=== PATIENT | female | born 1940 | race Two or more races ===

== ENCOUNTER 2018-09-27 15:10 | Emergency (ER) | payer MEDICARE, MEDICAID ==
[~2018-09-27] VITALS: Ht 165.1 cm; Wt 56.7 kg
--- NOTE | 2018-09-27 15:20 | NUR ---
BIB [facility] FOR L THUMB PAIN AND LACERATION S/P GLF X 3 HOURS. + DEFORMITY NOTED, TO ER BED1 , HOOKED TO MONITOR, CHANGED TO GOWN, PROVIDED W WARM BLANKET, AWAITING MD PAINITNG.
--- NOTE | 2018-09-27 15:30 | NUR ---
BERNICE PAULINO AT BEDSIDE
[2018-09-27] MEDS ORDERED: TDAP [DIPH/PERTUSSIS/TET] 0.5 ML VIAL IM ONE ×2 (15:43→16:00)
--- NOTE | 2018-09-27 15:55 | NUR ---
XRAYE TECH AT BEDSIDE
[2018-09-27] MEDS ORDERED: MORPHINE SULFATE INJ 2 MG/ML DISP.SYRIN IV ONE ×2 (16:00→17:30)
[2018-09-27] MEDS ORDERED: IV NS 0.9% 1,000 ML BAG IV ONE ×2 (16:00→18:30)
[2018-09-27] MEDS ORDERED: ONDANSETRON HCL/PF 4 MG/2 ML VIAL IVP ONE (16:00)
[2018-09-27] MEDS ORDERED: MORPHINE SULFATE INJ 4 MG/ML DISP.SYRIN ONE (16:01)
[2018-09-27] MEDS ORDERED: ONDANSETRON HCL/PF 4 MG/2 ML VIAL ONE (16:01)
[2018-09-27] MEDS ORDERED: PROPOFOL 20 ML IV ONE ×2 (16:09→18:26)
--- NOTE | 2018-09-27 16:10 | NUR ---
MD DISCUSSED PROCEDURE W THE PATIENT INCLUDING RISKS AND BENEFITS. PT SIGNED CONSENT FOR L THUMB REDUCTION OF L THUMB DISLOCATION VIA CONSCIOUS SEDATION.
[2018-09-27] MEDS ORDERED: PROPOFOL 200 MG/20 ML VIAL IV ONE ×4 (16:30→19:00)
--- NOTE | 2018-09-27 16:47 | NUR ---
MD AT BEDSIDE FOR PROCEDURE. RT AT BEDSIDE.
--- NOTE | 2018-09-27 16:55 | NUR ---
UNSUCCESSFUL ATTEMPT OF PROCEDURE. WOUND CARE DONE, COVERED W DRESSING.
[2018-09-27] MEDS ORDERED: CEFAZOLIN 1 GM in IV D5W 50 ML IV SCH ×2 (17:00→21:00)
--- NOTE | 2018-09-27 17:00 | NUR ---
PT AWAKE, AOx4, HOOKED TO MONITOR, RESPIRATIONS EVEN AND UNLABORED. NAD NOTED.
[2018-09-27] MEDS ORDERED: MORPHINE SULFATE INJ 2 MG/ML DISP.SYRIN ONE ×2 (17:24→22:29)
[2018-09-27] MEDS ORDERED: METF-440 PO (17:36)
[2018-09-27] MEDS ORDERED: ATEN50TA PO (17:36)
[2018-09-27] MEDS ORDERED: OLME20TA23 PO (17:36)
[2018-09-27] MEDS ORDERED: ESOM40CA52 PO (17:36)
[2018-09-27] MEDS ORDERED: LOSA50TA39 PO (17:36)
[2018-09-27] MEDS ORDERED: MEMA1CAP5 PO (17:36)
[2018-09-27] MEDS ORDERED: PRAV40TA3 PO (17:36)
[2018-09-27] MEDS ORDERED: IV NS 0.9% 1,000 ML IV PRN (18:16)
[2018-09-27] MEDS ORDERED: DEXTROSE 50%-WATER 50 ML DISP.SYRIN IV PRN (18:30)
[2018-09-27] MEDS ORDERED: ACETAMINOPHEN 325 MG TABLET PO PRN (18:30)
[2018-09-27] MEDS ORDERED: ZOLPIDEM TARTRATE 5 MG TABLET PO PRN (18:30)
[2018-09-27] MEDS ORDERED: Z GUARD REMEDY 2 OZ OINT TP PRN (18:30)
[2018-09-27] MEDS ORDERED: MAGNESIUM HYDROXIDE 30 ML UDC PO PRN (18:30)
[2018-09-27] MEDS ORDERED: ONDANSETRON HCL/PF 4 MG/2 ML VIAL IVP PRN (18:30)
[2018-09-27] MEDS ORDERED: HYDROCODONE/APAP 5/325MG 1 EACH TABLET PO PRN (18:30)
[2018-09-27] MEDS ORDERED: INSULIN REGULAR, HUMAN 100 UNIT/ML 3 ML VIAL SQ PRN (18:30)
[2018-09-27] MEDS ORDERED: ENOXAPARIN SODIUM 40 MG/0.4 ML DISP.SYRIN SQ SCH (18:30)
[2018-09-27] MEDS ORDERED: hydrALAZINE HCL 25 MG TABLET PO PRN (18:30)
[2018-09-27] MEDS ORDERED: MAG HYDROX/AL HYDROX/SIMETH 30 ML UDC PO PRN (18:30)
--- NOTE | 2018-09-27 18:34 | NUR ---
PT GOING TO [facility]
[2018-09-27 18:40] VITALS: BP 163/80
--- NOTE | 2018-09-27 18:40 | NUR ---
DR NAVARRETE AND DR ROSA AT BEDSIDE FOR L THUMB REDUCTION, RT AT BEDSIDE, RN AT BEDSIDE
--- NOTE | 2018-09-27 18:55 | NUR ---
PT AWAKE, AOx4, HOOKED TO MONITOR, RESPIRATIONS EVEN AND UNLABORED. NAD NOTED.
--- NOTE | 2018-09-27 19:45 | NUR ---
REPORT GIVEN TO ANJELICA FERRIS FOR JANICE
[2018-09-27] MEDS ORDERED: HYDROMORPHONE INJ 0.5 MG/0.5 ML SYRINGE IV PRN (20:30)
--- NOTE | 2018-09-27 20:33 | NUR ---
CALLED [facility], [facility], [facility], [facility], [facility], ALL STATED EITHER NO SPECIALIST AVAILABLE OR NO BEDS AVAILABLE.
--- NOTE | 2018-09-27 20:49 | NUR ---
PATIENT'S SON ZULAY PHONE # [phone]
--- NOTE | 2018-09-27 21:19 | NUR ---
CELESTE WEINSTEIN TO [facility] ER ETA [id number] TRIP # [id number]
[2018-09-27] MEDS ORDERED: BLOOD SUGAR DIAGNOSTIC 1 EACH STRIP IN SCH (22:00)
--- NOTE | 2018-09-27 22:19 | NUR ---
PT BEING TRANSFERED TO [facility] ER C/O ORTHO SURGEON DR RESENDIZ, ER ATTENDING: JOSHUA PATINO REFERENCE#[id number] [facility] ETA [phone] TRIP#[id number]
--- NOTE | 2018-09-27 22:27 | NUR ---
toño at bedside for transport to [facility].
[2018-09-27] MEDS ORDERED: HYDROMORPHONE 1 MG/1 ML DISP.SYRIN IV PRN (22:30)
[2018-09-27] MEDS ORDERED: MORPHINE SULFATE INJ 4 MG/ML DISP.SYRIN IV ONE (23:00)
[2018-09-28] MEDS ORDERED: PANTOPRAZOLE 40 MG TABLET.DR PO SCH (07:30)
[2018-09-28] MEDS ORDERED: ATORVASTATIN 10 MG TABLET PO SCH (09:00)
[2018-09-28] MEDS ORDERED: ATENOLOL 50 MG TABLET PO SCH (09:00)
[2018-09-28] MEDS ORDERED: MEMANTINE HCL 5 MG TABLET PO SCH (09:00)
[2018-09-28] MEDS ORDERED: METFORMIN 500 MG TABLET PO SCH (09:00)
[2018-09-28] MEDS ORDERED: LOSARTAN POTASSIUM 50 MG TABLET PO SCH ×2 (09:00)
== END 2018-09-28 01:33 | disposition short-term general hospital (02) ==
LOC: ER 15:10 → MED 17:44 → UNDOADMIN 17:44 → MED 18:56 → MEDSG2 18:56 → ER 09-28 01:33
DX: S63.115A Dislocation of metacarpophalangeal joint of left thumb, initial encounter (principal); S61.412A Laceration without foreign body of left hand, initial encounter; I10 Essential (primary) hypertension; E11.9 Type 2 diabetes mellitus without complications; E78.00 Pure hypercholesterolemia, unspecified; W01.0XXA Fall on same level from slipping, tripping and stumbling without subsequent striking against object, initial encounter; Y93.01 Activity, walking, marching and hiking; Y92.89 Other specified places as the place of occurrence of the external cause; Y99.8 Other external cause status
CPT/HCPCS: 26700; 73090; 73130; 90471; 90715; 96365; 96375; 99152; 99291; J0690 ×2; J1815; J2270 ×3; J2405; J2704 ×4; J7030; J7060 ×2; G0500

== ENCOUNTER 2018-10-12 14:55 | Emergency (ER) | payer MEDICARE, MEDICAID ==
[~2018-10-12] VITALS: Ht 152.4 cm; Wt 44.9 kg
[~2018-10-12 14:55] MED LIST: ATEN50TA PO; ESOM40CA52 PO; LOSA50TA39 PO; MEMA1CAP5 PO; METF-440 PO; OLME20TA23 PO; PRAV40TA3 PO
[2018-10-12 15:15] VITALS: BP 134/84
== END 2018-10-12 17:16 | disposition home or self-care (01) ==
LOC: ER 14:57
DX: S63.105D Unspecified dislocation of left thumb, subsequent encounter (principal); I10 Essential (primary) hypertension; E11.9 Type 2 diabetes mellitus without complications; E78.00 Pure hypercholesterolemia, unspecified; X58.XXXD Exposure to other specified factors, subsequent encounter